=== PATIENT | male | born 1970 | race Caucasian/White ===

== ENCOUNTER → 2024-12-31 15:52 | Outpatient (REF) | payer OTHER, SELFPAY | LOC: HWRCS 15:52 | PROVIDERS: ATTENDING PHYSICIAN Internal Medicine Cardiovascular Disease | DX: Z95.2 Presence of prosthetic heart valve (principal); I10 Essential (primary) hypertension; E78.5 Hyperlipidemia, unspecified | CPT/HCPCS: 93306 ==